=== PATIENT | male | born 1960 | race African-American/Black ===

== ENCOUNTER → 2017-04-01 | Outpatient (CLI) | payer BC ==
[~2017-04-01] MED LIST: ASPIRIN 32325 MG/TAB PO; ASPIRIN 81M81 MG/TA2 PO; ASPIRIN E.C. 8181 MG PO; ATIVAN 1MG T1 MG/TAB PO; CEFTIN500 MG PO; CIPRO 500MG TA500 MG PO; CLEOCIN HCL300 MG PO; COLACE 100100 MG/CAP PO; FLOMAX 0.40.4 MG/CAP PO; GLUCOPHAGE500 MG PO; INSULIN HUMA100 U/ML SQ; LANTUS100 U/ML SC; LANTUS100 U/ML SQ; LEVAQUIN 5500 MG/TA1 PO; LIPITOR 40MG TA40 MG PO; LOPRESSOR 225 MG/TAB PO; MACROBID 1100 MG/CAP PO; MACRODANTIN100 PO; MONODOX100 PO; MULTI VITAMINS1 TAB PO; MULTIPLE VITAMI1 CAP PO; NORCO 325 MG-51 TAB PO; NORCO 325 MG-7.1 TAB PO; NORVASC2.5 MG PO; NOVOLOG 100U100 U/M1 SQ; PYRIDIUM200 M1 PO; ULTRAM 50MG TAB50 MG PO; ZESTRIL 10MG10 MG PO; ZESTRIL 5MG5 MG PO
== END ==
LOC: SUN.DIA 08:52
DX: E11.40 Type 2 diabetes mellitus with diabetic neuropathy, unspecified (principal); Z79.4 Long term (current) use of insulin; E78.5 Hyperlipidemia, unspecified; I10 Essential (primary) hypertension; E66.9 Obesity, unspecified; Z68.34 Body mass index [BMI] 34.0-34.9, adult; Z71.3 Dietary counseling and surveillance; Z87.891 Personal history of nicotine dependence
CPT/HCPCS: G0108

== ENCOUNTER → 2017-04-08 | Outpatient (CLI) | payer BC | LOC: SUN.DIA 08:39 | DX: E11.40 Type 2 diabetes mellitus with diabetic neuropathy, unspecified (principal); Z79.4 Long term (current) use of insulin; E78.5 Hyperlipidemia, unspecified; I10 Essential (primary) hypertension; E66.9 Obesity, unspecified; Z68.34 Body mass index [BMI] 34.0-34.9, adult; Z71.3 Dietary counseling and surveillance; Z87.891 Personal history of nicotine dependence | CPT/HCPCS: G0108 ==

== ENCOUNTER → 2017-04-22 | Outpatient (CLI) | payer BC | LOC: SUN.DIA 08:46 | DX: E11.40 Type 2 diabetes mellitus with diabetic neuropathy, unspecified (principal); Z79.4 Long term (current) use of insulin; E78.5 Hyperlipidemia, unspecified; I10 Essential (primary) hypertension; E66.9 Obesity, unspecified; Z68.34 Body mass index [BMI] 34.0-34.9, adult; Z71.3 Dietary counseling and surveillance; Z87.891 Personal history of nicotine dependence | CPT/HCPCS: G0108 ==

== ENCOUNTER → 2017-05-19 | Outpatient (CLI) | payer BC | LOC: SUN.DIA 05-13 10:40 | DX: E11.40 Type 2 diabetes mellitus with diabetic neuropathy, unspecified (principal); Z79.4 Long term (current) use of insulin; E78.5 Hyperlipidemia, unspecified; I10 Essential (primary) hypertension; E66.9 Obesity, unspecified; Z68.34 Body mass index [BMI] 34.0-34.9, adult; Z71.3 Dietary counseling and surveillance; Z87.891 Personal history of nicotine dependence | CPT/HCPCS: G0108 ==

== ENCOUNTER → 2017-06-16 | Outpatient (CLI) | payer BC | LOC: SUN.DIA 14:11 | DX: E11.40 Type 2 diabetes mellitus with diabetic neuropathy, unspecified (principal); Z79.4 Long term (current) use of insulin; E78.5 Hyperlipidemia, unspecified; I10 Essential (primary) hypertension; E66.9 Obesity, unspecified; Z71.3 Dietary counseling and surveillance; Z87.891 Personal history of nicotine dependence | CPT/HCPCS: G0108 ==

== ENCOUNTER → 2017-08-17 | Outpatient (CLI) | payer BC | LOC: SUN.DIA 16:01 | DX: E11.40 Type 2 diabetes mellitus with diabetic neuropathy, unspecified (principal); Z79.4 Long term (current) use of insulin; E78.5 Hyperlipidemia, unspecified; I10 Essential (primary) hypertension; E66.9 Obesity, unspecified; Z71.3 Dietary counseling and surveillance; Z87.891 Personal history of nicotine dependence | CPT/HCPCS: G0108 ==

== ENCOUNTER → 2017-10-19 | Outpatient (CLI) | payer BC | LOC: SUN.DIA 16:06 | DX: E11.40 Type 2 diabetes mellitus with diabetic neuropathy, unspecified (principal); Z79.4 Long term (current) use of insulin; E78.5 Hyperlipidemia, unspecified; E66.9 Obesity, unspecified; F17.210 Nicotine dependence, cigarettes, uncomplicated ==

== ENCOUNTER → 2017-11-02 | Outpatient (CLI) | payer BC | LOC: SUN.DIA 16:01 | DX: E11.40 Type 2 diabetes mellitus with diabetic neuropathy, unspecified (principal); Z79.4 Long term (current) use of insulin; E78.5 Hyperlipidemia, unspecified; E66.9 Obesity, unspecified; F17.210 Nicotine dependence, cigarettes, uncomplicated | CPT/HCPCS: G0108 ==

== ENCOUNTER → 2018-06-29 | Outpatient (CLI) | payer BC | LOC: COL.RAD 10:30 | DX: E27.8 Other specified disorders of adrenal gland (principal) ==

== ENCOUNTER 2018-07-11 16:17 | Emergency (ER) | payer BC ==
[~2018-07-11] VITALS: Ht 157.5 cm; Wt 118.2 kg
[2018-07-11 16:24] VITALS: TEMP 98
[2018-07-11 17:04] LABS: BASO # 0.1 (0.0-0.2); EOS # 0.3 (0.0-0.7); EOS % 4.5 % (0-4.0); GRAN # 4.4 (1.4-6.5); GRAN % 61.8 % (42.2-75.2); HEMATOCRIT 41.8 % (42.0-52.0); HEMOGLOBIN 14.2 g/dl (13.5-18.0); LYMPH # 1.9 (1.2-3.4); LYMPH % 26.3 % (20.0-51.0); MEAN CELL VOLUME 92 fl (80.0-100.0); MEAN CORPUSCULAR HEMOGLOBIN 31 pg (27.0-31.0); MEAN CORPUSCULAR HGB CONC 34 g/dl (33.0-37.0); MEAN PLATELET VOLUME 9.6 fl (7.4-10.4); MONO # 0.4 (0.1-0.6); MONO % 6.1 % (1.7-9.3); PLATELET COUNT 217 K/mm3 (130-400); RED BLOOD COUNT 4.56 M/mm3 (4.20-5.60); REDCELL DISTRIBUTION WIDTH-CV 14.1 % (11.5-14.5)
[2018-07-11 17:12] LABS: CALCIUM 9.1 mg/dL (8.4-10.2); CREATININE, serum 2.7 (0.66-1.25); POTASSIUM 4.5 mmol/L (3.4-5.0)
[2018-07-11 19:24] VITALS: BP 150/105; PULSE 94
== END 2018-07-11 19:24 | disposition home or self-care (01) ==
LOC: COL.ER 16:17
PROVIDERS: Emergency Medicine
DX: E16.2 Hypoglycemia, unspecified (principal); Z79.82 Long term (current) use of aspirin; Z79.4 Long term (current) use of insulin
CPT/HCPCS: J7030

== ENCOUNTER 2018-07-27 16:28 | Emergency (ER) | payer OTHER ==
[~2018-07-27] VITALS: Ht 188 cm; Wt 120.5 kg
[2018-07-27 16:30] VITALS: TEMP 97.7
[2018-07-27] MEDS ORDERED: ZOFRAN ODT8 MG PO (16:42)
[2018-07-27 17:52] LABS: BASO # 0.1 (0.0-0.2); BASO % 0.9 % (0.0-2.0); EOS # 0.4 (0.0-0.7); GRAN # 5.8 (1.4-6.5); GRAN % 61.8 % (42.2-75.2); HEMATOCRIT 43.9 % (42.0-52.0); HEMOGLOBIN 14.8 g/dl (13.5-18.0); LYMPH # 2.5 (1.2-3.4); MEAN CELL VOLUME 92 fl (80.0-100.0); MEAN CORPUSCULAR HEMOGLOBIN 31 pg (27.0-31.0); MEAN CORPUSCULAR HGB CONC 34 g/dl (33.0-37.0); MEAN PLATELET VOLUME 9.4 fl (7.4-10.4); MONO # 0.5 (0.1-0.6); MONO % 5.4 % (1.7-9.3); PLATELET COUNT 227 K/mm3 (130-400); REDCELL DISTRIBUTION WIDTH-CV 14.1 % (11.5-14.5)
[2018-07-27 18:01] LABS: ALBUMIN 4.2 gm/dL (3.5-5.0); BILIRUBIN,TOTAL 0.4 mg/dL (0.0-1.0); CALCIUM 9.3 mg/dL (8.4-10.2); CREATININE, serum 2.79 (0.66-1.25); POTASSIUM 4.8 mmol/L (3.4-5.0); TOTAL PROTEIN 7.7 gm/dL (6.4-8.2)
[2018-07-27 18:34] VITALS: BP 150/108; PULSE 89
== END 2018-07-27 18:33 | disposition home or self-care (01) ==
LOC: COL.ER 16:28
PROVIDERS: Emergency Medicine
DX: S06.0X0A Concussion without loss of consciousness, initial encounter (principal); E11.9 Type 2 diabetes mellitus without complications; I10 Essential (primary) hypertension; W11.XXXA Fall on and from ladder, initial encounter; Y92.59 Other trade areas as the place of occurrence of the external cause; Z79.4 Long term (current) use of insulin

== ENCOUNTER 2018-08-05 18:29 | Emergency (ER) | payer BC ==
[~2018-08-05] VITALS: Ht 185.4 cm; Wt 115.9 kg
[~2018-08-05 18:29] MED LIST changes: +ZOFRAN ODT8 MG PO
[2018-08-05 18:34] VITALS: TEMP 98.3
[2018-08-05 19:04] LABS: BASO # 0.1 (0.0-0.2); BASO % 0.7 % (0.0-2.0); EOS % 0.4 % (0-4.0); GRAN # 9.5 (1.4-6.5); GRAN % 82.8 % (42.2-75.2); HEMATOCRIT 44.7 % (42.0-52.0); HEMOGLOBIN 15.3 g/dl (13.5-18.0); LYMPH # 1.4 (1.2-3.4); LYMPH % 12.2 % (20.0-51.0); MEAN CELL VOLUME 89 fl (80.0-100.0); MEAN CORPUSCULAR HEMOGLOBIN 31 pg (27.0-31.0); MEAN CORPUSCULAR HGB CONC 34 g/dl (33.0-37.0); MEAN PLATELET VOLUME 10.2 fl (7.4-10.4); MONO # 0.4 (0.1-0.6); MONO % 3.5 % (1.7-9.3); PLATELET COUNT 303 K/mm3 (130-400); RED BLOOD COUNT 5.01 M/mm3 (4.20-5.60)
[2018-08-05 19:15] LABS: ALANINE AMINOTRANSFERASE 14 U/L (21-72); ALBUMIN 4.3 gm/dL (3.5-5.0); ALKALINE PHOSPHATASE 181 U/L (50-136); ANION GAP 16 mmol/L (7-16); AST,SGOT 22 U/L (15-37); BILIRUBIN,TOTAL 0.7 mg/dL (0.0-1.0); BLOOD UREA NITROGEN 66 mg/dL (9-20); CARBON DIOXIDE 25 mmol/L (22-30); CHLORIDE 96 mmol/L (98-107); CREATININE, serum 3.41 (0.66-1.25); SODIUM 137 mmol/L (137-145)
[2018-08-05 19:26] LABS: TROPONIN-I 0.033 ng/mL (0.000-0.035)
[2018-08-05 19:28] LABS: GLUCOSE 621 mg/dL (74-106)
[2018-08-05 19:29] LABS: ACETONE,SERUM SMALL; POTASSIUM 5.9 mmol/L (3.4-5.0)
[2018-08-05 20:12] LABS: ARTERIAL BLOOD GAS PCO2 37.7 mmHg (35-45); ARTERIAL BLOOD GAS pH 7.45 (7.35-7.45)
[2018-08-05 20:14] LABS: ARTERIAL BLOOD GAS BASE EXCESS 1.9 (-2-2); ARTERIAL BLOOD GAS HCO3 25.7 meq/L (22-26); ARTERIAL BLOOD GAS PO2 38.3 mmHg (80-100)
[2018-08-05 21:08] LABS: COLLECTION METHOD CLEAN CATCH
[2018-08-05 21:28] LABS: PH 7 (5-8); SQUAMOUS EPITHELIAL None Seen /hpf; URINE APPEARANCE Clear; URINE BACTERIA None Seen /hpf; URINE BILIRUBIN Negative (NEGATIVE); URINE BLOOD 1+ (NEGATIVE); URINE COLOR Yellow; URINE GLUCOSE 3+ (NEGATIVE); URINE KETONE Negative (NEGATIVE); URINE LEUKOCYTE ESTERASE 2+ (NEGATIVE); URINE NITRATE Negative (NEGATIVE); URINE PROTEIN(semi-quant) 2+ (NEGATIVE); URINE UROBILINOGEN Negative (NEGATIVE)
[2018-08-05 23:21] VITALS: BP 120/85; PULSE 94
== END 2018-08-05 23:21 | disposition short-term general hospital (02) ==
LOC: COL.ER 18:29
PROVIDERS: Emergency Medicine
DX: E11.65 Type 2 diabetes mellitus with hyperglycemia (principal); E11.22 Type 2 diabetes mellitus with diabetic chronic kidney disease; I12.9 Hypertensive chronic kidney disease with stage 1 through stage 4 chronic kidney disease, or unspecified chronic kidney disease; N17.9 Acute kidney failure, unspecified; N39.0 Urinary tract infection, site not specified; E87.5 Hyperkalemia; Z79.4 Long term (current) use of insulin; Z79.82 Long term (current) use of aspirin
CPT/HCPCS: J0696; J1815; J2060; J2405; J7030

== ENCOUNTER 2018-08-08 13:32 | Outpatient (RCR) | payer OTHER | END 2018-09-05 10:23 | disposition still patient (30) | LOC: WSOH 13:32 | DX: S06.0X1A Concussion with loss of consciousness of 30 minutes or less, initial encounter (principal); S00.80XA Unspecified superficial injury of other part of head, initial encounter; W11.XXXA Fall on and from ladder, initial encounter; Y92.89 Other specified places as the place of occurrence of the external cause; Y99.0 Civilian activity done for income or pay ==

== ENCOUNTER → 2023-03-26 | Outpatient (CLI) | payer BC ==
[~2023-03-26] MED LIST changes: +NORVASC 5MG5 MG/TAB PO; +NOVLOG; +TAMIFLU30 MG PO; +TRESIBA FL100 UNIT/1 SQ; +ZOFRAN ODT4 MG PO
== END ==
LOC: COL.RAD 10:30
DX: E21.3 Hyperparathyroidism, unspecified (principal)
CPT/HCPCS: A9500-JZ

== ENCOUNTER 2023-04-07 08:23 | Day surgery (SDC) | payer BC ==
[2023-04-07] VITALS (8 sets, daily range): BP systolic 102–155; BP diastolic 59–99; PULSE 72–82; TEMP 98–98.9
[~2023-04-07] VITALS: Ht 185.4 cm; Wt 107.0 kg
--- NOTE | 2023-04-07 10:07 | NUR ---
ACCUCHECK ON RE CHECK 80 AND REPORTED TO JASPREET Marks CRNA. NO FURTHER ORDERS.
[2023-04-07] MEDS ORDERED: TYLENOL 325MG325 MG PO (10:16)
[2023-04-07] MEDS ORDERED: NORVASC 5MG5 MG/TAB PO (10:17)
[2023-04-07] MEDS ORDERED: LASIX 20MG TABL20 MG PO (10:25)
[2023-04-07] MEDS ORDERED: ZESTRIL 5MG5 MG PO (10:26)
[2023-04-07] MEDS ORDERED: CALCITRIOL PO (10:27)
[2023-04-07] MEDS ORDERED: DAILY MULTIPLE1 T18 PO (10:29)
[2023-04-07] MEDS ORDERED: ZYLOPRIM 300MG300 MG PO (10:31)
[2023-04-07] MEDS ORDERED: LEVAQUIN 750MG750 M1 PO (10:33)
[2023-04-07 10:37] LABS: CALCIUM 8.9 mg/dL (8.4-10.2); CREATININE, serum 6.34 mg/dL (0.72-1.25)
--- NOTE | 2023-04-07 20:23 | NUR ---
[id number]: PT TO RECOVERY BAY 6 FROM PACU S/P [employer] CATH PLACEMENT A&O, PLACED ON MONITOR, VSS ON RA RECEIVED REPORT AND ASSUMED CARE OF PT FROM RN PAMELLA SISTER AT BEDSIDE DRSGS (GLUE X 3 TROCAR SITES; DRAIN SPOUNGE, 4X4, TEGADERM AT DRAIN) CDI PT HAS BEEN HYPOGLYCEMIC PRE AND POST-OP. HAS HAD PO AND IV GLUCOSE, GLUSOSE UPON ARRIVAL TO MAC 63 - PT TOLERATING PO ALREADY, PROVIDED 8OZ OF JUICE, MUFFIN, CHEESE, CRACKERS - TOLERATED ALL AND RESPONDED WITH SUGARS IN 100'S, DENIES S/S THRU OUT SDC STAY. REPORTS MINIMAL ABD DISCOMFORT, ED ON WOUND AND DRSG CARE, ABD SPLINTING - DECLINES INTERVENTION THRU OUT SDC STAY. PT HAS REMAINED A&O, NAD, VSS ON RA, TOLERATING PO, IS WITHOUT SIGNIFICANT COMPLAINT, WITH STEADY GAIT WITH CHARCOT SHOE THRU OUT STAY IV D/C'D. D/C INSTRUCTIONS, FOLLOW UP REVIEWED AND HANDED TO PT. ALL QUESTIONS AND CONCERNS ADDRESSED TO PT SATISFACTION. TAKEN TO EXIT VIA W/C WITH ALL BELONGINGS AND PAPERWORK IN HAND, ASSISTED INTO PASSENGER SEAT OF [facility]. BROTHER TO DRIVE HOME.
== END 2023-04-07 15:20 | disposition home or self-care (01) ==
LOC: SDCO 08:23
PROVIDERS: Surgery
DX: I12.0 Hypertensive chronic kidney disease with stage 5 chronic kidney disease or end stage renal disease (principal); N18.5 Chronic kidney disease, stage 5; E11.22 Type 2 diabetes mellitus with diabetic chronic kidney disease; E66.9 Obesity, unspecified; Z68.32 Body mass index [BMI] 32.0-32.9, adult; Z87.891 Personal history of nicotine dependence; Z79.4 Long term (current) use of insulin
CPT/HCPCS: C1750; J0665; J0690; J2405; J2704; J3010; J7030

== ENCOUNTER 2023-04-27 08:00 | Inpatient (IN) | payer BC ==
[~2023-04-27] VITALS: Ht 185.4 cm; Wt 106.9 kg
[2023-04-27] VITALS (9 sets, daily range): BP systolic 119–149; BP diastolic 65–73; PULSE 68–92; TEMP 98.3–98.6
[~2023-04-27 08:00] MED LIST changes: +CALCITRIOL PO; +DAILY MULTIPLE1 T18 PO; +LASIX 20MG TABL20 MG PO; +LEVAQUIN 750MG750 M1 PO; +TYLENOL 325MG325 MG PO; +ZYLOPRIM 300MG300 MG PO
[2023-04-27 08:41] LABS: BASO % 0.4 % (0.0-2.0); EOS # 0.1 K/mm3 (0.0-0.7); EOS % 1.3 % (0.0-4.0); GRAN # 8.1 K/mm3 (1.4-6.5); GRAN % 81.8 % (42.2-75.2); LYMPH # 0.9 K/mm3 (1.2-3.4); LYMPH % 9.5 % (20.0-51.0); MEAN CELL VOLUME 84 fl (80.0-100.0); MEAN CORPUSCULAR HGB CONC 31 g/dl (33.0-37.0); MONO # 0.6 K/mm3 (0.1-0.6); MONO % 6.5 % (1.7-9.3); PLATELET COUNT 384 K/mm3 (130-400); RED BLOOD COUNT 3.31 M/mm3 (4.20-5.60); REDCELL DISTRIBUTION WIDTH-CV 17.4 % (11.5-14.5)
[2023-04-27 08:44] LABS: HEMATOCRIT 27.7 % (42.0-52.0); HEMOGLOBIN 8.6 g/dl (13.5-18.0); MEAN CORPUSCULAR HEMOGLOBIN 26 pg (27-31)
[2023-04-27 08:58] LABS: ALBUMIN 2.8 gm/dL (3.4-4.8); BILIRUBIN,TOTAL 0.2 mg/dL (0.2-1.2); CALCIUM 9.6 mg/dL (8.4-10.2); CREATININE, serum 5.8 mg/dL (0.72-1.25); POTASSIUM 4.3 mmol/L (3.5-4.5); TOTAL PROTEIN 7.8 gm/dL (6.2-8.1)
[2023-04-27] MEDS ORDERED: fentaNYL 50 MCG/ML 2 ML VIAL IV ONE (09:00)
[2023-04-27] MEDS ORDERED: Morphine 4 MG/ML VIAL IV ONE (10:15)
[2023-04-27] MEDS ORDERED: PRINIVIL5 MG PO (10:33)
[2023-04-27] MEDS ORDERED: INSULIN AS100 UNIT/2 SQ (10:35)
[2023-04-27] MEDS ORDERED: TRESIBA FL100 UNIT/1 SQ (10:36)
[2023-04-27] MEDS ORDERED: LASIX 40MG TABL40 MG PO (10:39)
[2023-04-27] MEDS ORDERED: CIPRO 500MG TA500 MG PO (12:25)
[2023-04-27] MEDS ORDERED: PERCOCET 325 MG1 TA2 PO (12:25)
[2023-04-27] MEDS ORDERED: Polyethylene Glycol 3350 17 GM PDS PO PRN (13:30)
[2023-04-27] MEDS ORDERED: Acetaminophen 325 MG TAB PO PRN (13:30)
[2023-04-27] MEDS ORDERED: Ondansetron 4 MG/2 ML VIAL IV PRN ×3 (13:30→21:45)
[2023-04-27] MEDS ORDERED: Dextrose 50% Water 25 GM/50 ML SYRINGE IV ONE (13:30)
[2023-04-27] MEDS ORDERED: Docusate Sodium 100 MG CAP PO PRN (13:30)
[2023-04-27] MEDS ORDERED: D5 1/2 NS & 20 mEq KCl 1,000 ML IV ONE (13:30)
[2023-04-27] MEDS ORDERED: HYDROmorphone 0.5 MG/0.5 ML SYRINGE IV ONE (13:45)
[2023-04-27] MEDS ORDERED: *Vancomycin Dosing Protocol IV SCH (14:00)
[2023-04-27] MEDS ORDERED: Vancomycin 2 GM,Special Dose/Pharmacy Prepared 2 GM in NS 500 ML IV SCH (14:30)
[2023-04-27] MEDS ORDERED: D5 1/2 NS 1,000 ML IV SCH (15:30)
[2023-04-27] MEDS ORDERED: Heparin 5,000 UNITS/ML 1 ML VIAL SQ SCH (16:00)
[2023-04-27] MEDS ORDERED: Insulin Aspart (NovoLOG) SQ SCH (17:00)
[2023-04-27] MEDS ORDERED: Heparin 1,000 UNITS/ML 10 ML Multi-Dose VIAL IV SCH (18:15)
[2023-04-27] MEDS ORDERED: Heparin 1,000 UNITS/ML 10 ML Multi-Dose VIAL ICA SCH (18:15)
[2023-04-27] MEDS ORDERED: Ondansetron 4 MG/2 ML VIAL ONE (18:29)
[2023-04-27] MEDS ORDERED: dexAMETHasone 10 MG/ML VIAL ONE (18:29)
[2023-04-27] MEDS ORDERED: fentaNYL 50 MCG/ML 2 ML VIAL ONE (18:29)
[2023-04-27] MEDS ORDERED: Lidocaine PF 2% (20 MG/ML) 5 ML VIAL ONE (18:29)
[2023-04-27] MEDS ORDERED: Ketorolac 30 MG/ML VIAL ONE (18:29)
[2023-04-27] MEDS ORDERED: fentaNYL 50 MCG/ML 2 ML VIAL IV PRN (18:30)
[2023-04-27] MEDS ORDERED: HYDROmorphone 2 MG/1 ML VIAL IV PRN (18:30)
[2023-04-27] MEDS ORDERED: hydrALAZINE 20 MG/ML 1 ML VIAL IV PRN (18:30)
[2023-04-27] MEDS ORDERED: droPERidol 2.5 MG/ML 2 ML VIAL IV PRN (18:30)
[2023-04-27] MEDS ORDERED: Metoprolol Tartrate 50 MG TAB PO SCH (21:00)
[2023-04-27] MEDS ORDERED: Atorvastatin 40 MG TAB PO SCH (21:00)
[2023-04-27] MEDS ORDERED: amLODIPine 5 MG TAB PO SCH (21:00)
[2023-04-27] MEDS ORDERED: Lisinopril 5 MG TAB PO SCH (21:00)
[2023-04-27] MEDS ORDERED: Naloxone 0.4 MG/ML VIAL IV PRN (21:45)
--- NOTE | 2023-04-27 22:47 | NUR ---
Patient arrived to surgical unit from PACU at approximately 2200. Denies having pain and discomfort. Tolerated clear liquids, given pudding as requested, tolerated well, given sandwich as requested. Peripheral IV to right AC. IV fluids continue and started IV ABX per orders. Denies SOB and dyspnea. LS CTA. HRR. BSAx4. 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 Immobilizer in place. Elevated on pillow and ice to site. Voices no questions, needs, or concerns at this time. In bed with call light within reach. Bed alarm on. Patient trying to remain positive, but did make the comment that he is not ready to look at amputation site at this time.
[2023-04-28] VITALS (13 sets, daily range): BP systolic 113–147; BP diastolic 64–85; PULSE 66–80; TEMP 98–98.4
[2023-04-28 04:11] LABS: COLLECTION METHOD CLEAN CATCH
[2023-04-28 04:19] LABS: PH 6.5 (5.0-8.5); URINE APPEARANCE CLEAR (CLEAR/HAZY); URINE BLOOD 1+ (NEGATIVE); URINE COLOR YELLOW (YELLOW); URINE GLUCOSE 2+ (NEGATIVE); URINE KETONE NEGATIVE (NEGATIVE); URINE NITRATE NEGATIVE (NEGATIVE); URINE PROTEIN(semi-quant) 2+ (NEGATIVE); URINE UROBILINOGEN 0.2 E.U/dL (0.2-1.0)
--- NOTE | 2023-04-28 05:35 | NUR ---
Patient received PRN [place] once this shift as requested for pain. Did not have any adverse reactions noted or reported. Right leg elevated on pillows, ice to site. Dressing/immobilizer in place. Voices no questions, needs, or concerns at this time. In bed with call light within reach. Bed alarm on. Continues on IV ABX per orders.
[2023-04-28 06:49] LABS: BASO % 0.1 % (0.0-2.0); GRAN # 6.9 K/mm3 (1.4-6.5); GRAN % 89.6 % (42.2-75.2); LYMPH # 0.6 K/mm3 (1.2-3.4); MEAN CELL VOLUME 83 fl (80.0-100.0); MEAN CORPUSCULAR HGB CONC 31 g/dl (33.0-37.0); MEAN PLATELET VOLUME 9.3 fl (7.4-10.4); MONO # 0.1 K/mm3 (0.1-0.6); MONO % 1.8 % (1.7-9.3); PLATELET COUNT 332 K/mm3 (130-400); REDCELL DISTRIBUTION WIDTH-CV 17.3 % (11.5-14.5)
[2023-04-28 06:57] LABS: HEMATOCRIT 24.9 % (42.0-52.0); HEMOGLOBIN 7.8 g/dl (13.5-18.0); MEAN CORPUSCULAR HEMOGLOBIN 26 pg (27-31)
[2023-04-28 07:09] LABS: CALCIUM 8.7 mg/dL (8.4-10.2); CREATININE, serum 6.15 mg/dL (0.72-1.25); MAGNESIUM 1.4 mg/dL (1.6-2.6); POTASSIUM 5.7 mmol/L (3.5-4.5)
--- NOTE | 2023-04-28 08:00 | NUR ---
Pt resting in bed with pain 5/10 in right BKA, pain medication provided per emar. Dressing on right BKA clean and dry, ice applied. Peritoneal catheter hep locked and dressing clean and dry. Family at bedside. Will continue to montior.
[2023-04-28] MEDS ORDERED: Lisinopril 10 MG TAB PO SCH (09:00)
[2023-04-28] MEDS ORDERED: Calcitriol 0.25 MCG CAP PO SCH (09:00)
[2023-04-28] MEDS ORDERED: Furosemide 40 MG TAB PO SCH (09:00)
[2023-04-28] MEDS ORDERED: Multivitamin TAB PO SCH (09:00)
[2023-04-28] MEDS ORDERED: Allopurinol 300 MG TAB PO SCH (09:00)
[2023-04-28] MEDS ORDERED: Heparin 5,000 UNITS/ML 1 ML VIAL SQ SCH (09:00)
--- NOTE | 2023-04-28 09:52 | NUR ---
SEE MERGE FOR PROCEDURE DOCUMENTATION
[2023-04-28] MEDS ORDERED: Midazolam 2 MG/2 ML VIAL IV SCH (10:40)
--- NOTE | 2023-04-28 13:06 | NUR ---
Initial visit; Patient using the telephone but his sister; Shreya thanked for stopping and being so kind. will keep Asael in her prayers along with his sister; Shreya who said she was pleased to meet Coating Mixer and will call her if Asael decides he would like prayer.
--- NOTE | 2023-04-28 13:14 | NUR ---
DR. KEVIN PROVIDED VERBAL ORDERS TO CONSULT DR. [facility] FOR PT FOLLOWS THIS PROVIDER OUTPT.
[2023-04-28] MEDS ORDERED: Dextrose 50% Water 25 GM/50 ML SYRINGE IV PRN (14:00)
[2023-04-28] MEDS ORDERED: Dextrose (Glucose) 15 GM (4 x 3.75 GM) Chewable TABLET PACK PO PRN (14:00)
[2023-04-28] MEDS ORDERED: Glucagon 1 MG VIAL IM PRN (14:00)
--- NOTE | 2023-04-28 14:13 | NUR ---
nursing home social worker recieved a consult regarding IPR referral/review for pt. VAZQUEZ discussed with Dr. Velazquez who was agreeable to this once stable and reviewed by Infectious Disease. SW was informed pt will need dialysis upon discharge. SW spoke with IPR Director Ashley and informed her of the potential referral for review. SW spoke with patient and his friend, Dorene [phone] while he was in dialysis per KRISTIN Bernard'buzz peck. Patient reports he lives alone in [place]. He has his friend listed and his sister on the contact list. He sees Dr. Kimbrough and obtains medications from [facility] with no difficulties. He had questions regarding affordability. SW provided verbal information on [facility]. Pt reports most of his medication are around $9, but his insulin is expensive until he meets his deductible. Pt reports he is independent with ADLS and uses crutches and a boot for DME. He does not have a DPOA-HC and accepted a copy to look over. SW asked if he was or had children to assess NOK. Pt reports he is not , but has children. He reports that his sister is his decision-maker, but is fine when SW informed him legally it is his children. He will review this. SW notes PT/OT evaluated pt and reccomending IPR vs Snf vs HH. Pt declined SNF as he does not want to go in a shelter. Pt was provided information on IPR as they have dialysis and could assist if he needs IV ABOX. SW provided information on what home with HH would look like in that regard. Pt reports he is established with [facility] and reports that ESRD automatically qualifies pt for Medicaid approval. He states they started it, but was unsure of the status. SW said she can have the financial advisors follow up. Pt was agreeable to this. Pt reports concerns regarding if PT reccomends a FWW and he is not agreeable to this. He reports he cannot 'hop' with a walker on one foot. SW advised he discuss this further with the therapy team as he uses crutches at home. SW informed financial sales manager Gisell to check on the status of Medicaid application. She will inform Charogaurang to complete a FAHAD. Discharge Plan: tbd
--- NOTE | 2023-04-28 16:04 | NUR ---
food preparation worker emailed Joanie at [facility] to follow up on potential insurance they completed. VAZQUEZ was informed a Medicaid application was not completed, only discussed. She reports pt gets SSDI and they sent in his Medicare application to social security stating that he has ESRD. VAZQUEZ informed hospital financial advisors via email.
--- NOTE | 2023-04-28 17:05 | NUR ---
Dialysis Note Pt6 arrived to tx via bed uf goal set for 2kg and 2 kg removed. Pt tolerated tx well, Pt dcd back to room without complaints
--- NOTE | 2023-04-28 20:20 | NUR ---
PT A&O X3 LAYING IN BED. VSS ON ROOM AIR. RIGHT BKA DRESSING CDI WITH BRACE IN PLACE & ELEVATED ON PILLOW WITH ICE PACK ON. PT DENYING ANY PAIN AT THIS TIME. LEFT FOOT DRESSING IN PLACE FROM WOUND CARE TODAY & ELEVATED ON PILLOW. IV ABX INFUSING TO RIGHT AC VIA PUMP. PT BLOOD SUGAR 429, HOSPITALIST ANURAG NOTIFIED & NEW ORDER FOR 10U IV INSULIN REGULAR ALONG WITH PTS 55U LEVEMIR & WILL WAIT ON PTS SS INSULIN, GIVEN PER MAY. & TO RECHECK BLOOD SUGAR IN AN HOUR.
[2023-04-28] MEDS ORDERED: Insulin Regular Human (NovoLIN R/HumuLIN R) IV ONE ×2 (20:30→21:45)
[2023-04-28] MEDS ORDERED: Insulin Aspart (NovoLOG) SQ SCH (21:00)
[2023-04-28] MEDS ORDERED: Sennosides/Docusate 8.6-50 MG TAB PO SCH (21:00)
[2023-04-28 21:07] LABS: CALCIUM 8.6 mg/dL (8.4-10.2); CREATININE, serum 4.34 mg/dL (0.72-1.25); POTASSIUM 4.6 mmol/L (3.5-4.5)
--- NOTE | 2023-04-28 21:35 | NUR ---
HOSPITALIST ANURAG NOTIFIED OF CRITICAL LAB GLUCOSE WAS 505 & RECHECK BLOOD SUGAR WAS 452. NEW ORDER FOR 10U IV INSULIN REGULAR & TO RECHECK BLOOD SUGAR IN AN HOUR.
--- NOTE | 2023-04-28 22:50 | NUR ---
HOSPITALIST ANURAG NOTIFIED PT BLOOD SUGAR NOW 337. ORDER TO NOW GIVE SS INSULIN, GIVEN PER MAY.
[2023-04-29] VITALS (12 sets, daily range): BP systolic 109–152; BP diastolic 66–85; PULSE 61–76; TEMP 97.5–98.3
--- NOTE | 2023-04-29 00:55 | NUR ---
PT RESTING IN BED WITH UNLABORED RESP. NO C/O PAIN. CALL LIGHT IN REACH & FALL PRECAUTIONS IN PLACE
--- NOTE | 2023-04-29 06:20 | NUR ---
PT RESTING IN BED WITH UNLABORED RESP. NO C/O PAIN THIS MORNING. 0430 BLOOD SUGAR 211, GAVE NONSCHEDULED SS INSULIN AFTER HOSPITALIST ANURAG GAVE VERBAL ORDER TO. PT DENYING FURTHER NEEDS. CALL LIGHT IN REACH
[2023-04-29 06:50] LABS: BASO % 0.3 % (0.0-2.0); EOS # 0.2 K/mm3 (0.0-0.7); EOS % 1.7 % (0.0-4.0); LYMPH # 2.4 K/mm3 (1.2-3.4); LYMPH % 23.3 % (20.0-51.0); MEAN CELL VOLUME 83 fl (80.0-100.0); MEAN CORPUSCULAR HGB CONC 32 g/dl (33.0-37.0); MEAN PLATELET VOLUME 9.8 fl (7.4-10.4); MONO # 0.6 K/mm3 (0.1-0.6); MONO % 6.2 % (1.7-9.3); PLATELET COUNT 343 K/mm3 (130-400); RED BLOOD COUNT 2.67 M/mm3 (4.20-5.60); REDCELL DISTRIBUTION WIDTH-CV 17.1 % (11.5-14.5)
[2023-04-29 06:56] LABS: HEMATOCRIT 22.1 % (42.0-52.0); MEAN CORPUSCULAR HEMOGLOBIN 26 pg (27-31)
[2023-04-29 07:27] LABS: C-REACTIVE PROTEIN 7.36 mg/dL (0.00-0.50); CALCIUM 8.8 mg/dL (8.4-10.2); CREATININE, serum 4.77 mg/dL (0.72-1.25); MAGNESIUM 1.6 mg/dL (1.6-2.6); POTASSIUM 4.5 mmol/L (3.5-4.5)
--- NOTE | 2023-04-29 09:07 | NUR ---
PT RESTING IN BED EATING BREAKFAST. PAIN WELL CONTROLLED WITH PO MEDS AT THIS TIME. DRESSING TO RIGHT LE CDI. IV RUNNING TO [facility]. PT IS A/OX4, AWAITING ID RECCS FOR ABX. PT BEGINNING TO WORK WITH THERAPY THIS AM.
--- NOTE | 2023-04-29 09:36 | NUR ---
Vancomycin dosing note: 04/28/23 random morning level resulted at 17. Patient dialized in the afternoon. 04/29/23 will redose 1 gram today. Next HD planned for 04/30/23. ID consult will be today. Pharmacy will continue to follow.
--- NOTE | 2023-04-29 10:54 | NUR ---
VAZQUEZ recieved a call from pt whom wants to complete DPOA-HC. VAZQUEZ completed this with pt listing his daughters, Bairon and Beni who live in [place]. VAZQUEZ and VAZQUEZ Student Stephenie witnessed signature. Pt signed and was provided copies/originals. Copy placed in the chart. VAZQUEZ advised patient that Dr. Velazquez believes tomorrow pt could look into discharge. VAZQUEZ informed him that she will keep him updated if IPR accepts him. VAZQUEZ informed IPR Director Ashley of potential discharge for patient. Discharge Plan; tbd, IPR Review
--- NOTE | 2023-04-29 13:54 | NUR ---
dairy cattle farm worker faxed History and Physical per a request informed by VAZQUEZ Gillespie from VAZQUEZ Nair at [facility]. VAZQUEZ called junior financial analyst Joseph and followed up to see if she obtained a FAHAD with pt for checking on Medicaid. Joseph confirmed she had completed this. Discharge Plan: tbd
[2023-04-29] MEDS ORDERED: Heparin 1,000 UNITS/ML 10 ML Multi-Dose VIAL ICA SCH (17:00)
[2023-04-29] MEDS ORDERED: NS 1,000 ML IV SCH (17:00)
--- NOTE | 2023-04-29 19:19 | NUR ---
RECEIVED CHANGE OF SHIFT REPORT FORM DAY SHIFT NURSE. PATIENT UP IN CHAIR, NO NEEDS REPORTED AT TIME OF REPORT. CALL LIGHT IN REACH.
--- NOTE | 2023-04-29 19:56 | NUR ---
PT UP IN CHAIR DENIES NEEDS
--- NOTE | 2023-04-29 20:00 | NUR ---
PT HAS A PERITONEAL DIALYSIS CATH. GAUZE DRESSING COVERING IS CLEAN DRY AND INTACT.
[2023-04-30 01:00] VITALS: BP_SYST 114
[2023-04-30 03:30] VITALS: BP 114/67; PULSE 68; TEMP 97.9
[2023-04-30 05:00] VITALS: BP_SYST 114
--- NOTE | 2023-04-30 06:20 | NUR ---
PT IN HD. ZOSYN HELD UNTIL LAST HOUR OF HD. REFUSED BOWEL PREP THIS AM SINCE HE IS IN HD. PT HAD A BM LAST NIGHT. STABLE ON ROUNDS. NO SIGN OF DISTRESS AT THIS TIME.
[2023-04-30 06:45] LABS: BASO % 0.4 % (0.0-2.0); EOS # 0.4 K/mm3 (0.0-0.7); EOS % 5.2 % (0.0-4.0); GRAN # 4.9 K/mm3 (1.4-6.5); GRAN % 62.7 % (42.2-75.2); LYMPH % 25.3 % (20.0-51.0); MEAN CELL VOLUME 83 fl (80.0-100.0); MEAN CORPUSCULAR HGB CONC 32 g/dl (33.0-37.0); MEAN PLATELET VOLUME 9.9 fl (7.4-10.4); MONO # 0.5 K/mm3 (0.1-0.6); MONO % 6.1 % (1.7-9.3); PLATELET COUNT 344 K/mm3 (130-400); RED BLOOD COUNT 2.92 M/mm3 (4.20-5.60)
[2023-04-30 06:48] LABS: HEMATOCRIT 24.1 % (42.0-52.0); HEMOGLOBIN 7.7 g/dl (13.5-18.0); MEAN CORPUSCULAR HEMOGLOBIN 26 pg (27-31)
[2023-04-30 07:06] LABS: C-REACTIVE PROTEIN 4.74 mg/dL (0.00-0.50); CALCIUM 8.8 mg/dL (8.4-10.2); CREATININE, serum 5.33 mg/dL (0.72-1.25); MAGNESIUM 1.4 mg/dL (1.6-2.6); POTASSIUM 4.7 mmol/L (3.5-4.5)
[2023-04-30 08:23] VITALS: BP_SYST 114
--- NOTE | 2023-04-30 08:26 | NUR ---
PT IN DIALYSIS, A/O X4, REPORTING NO PAIN. BLOOD SUGAR 63 THIS MORNING, GLUCOSE TABLETS AND BREAKFAST PROVIDED, RECHECK BLOOD SUGAR OF 106. PERITONEAL DIALYSIS PORT CLEAN AND DRY. DRESSING TO LEFT FOOT PLACED BY WOUND CARE CLEAN AND DRY. PT REFUSED ICE TO [facility] AT THIS TIME. WILL CONTINUE TO MONITOR.
--- NOTE | 2023-04-30 09:42 | NUR ---
Dialysis Note Pt arrived to tx via bed. Uf goal set for 2.5 kg and 2.5 kg removed. Pt tolerated tx well and dcd back to room via bed without complaints
[2023-04-30 11:47] VITALS: BP 155/74; PULSE 81; TEMP 98.3
[2023-04-30 12:14] VITALS: BP_SYST 155
--- NOTE | 2023-04-30 14:02 | NUR ---
[facility] was notified by [facility]ANIL[facility] Ramirez Director that they got insurance authorization for patient and can accept today. Discharge Plan; IPR
[2023-04-30] MEDS ORDERED: AMOXICILLIN/CLA1 TA1 PO (14:59)
[2023-04-30] MEDS ORDERED: ASPI325T6 PO (15:00)
[2023-04-30] MEDS ORDERED: PROTONIX 40MG T40 MG PO (15:01)
[2023-04-30] MEDS ORDERED: NORCO 325 MG-51 TAB PO (15:02)
[2023-04-30] MEDS ORDERED: NOVOLOG FLEX100 U/ML SQ (15:02)
--- NOTE | 2023-04-30 15:16 | NUR ---
REPORT GIVEN TO HANANE FOSTER. PT AND BELONGINGS MOVED TO IPR.
[2023-04-30] MEDS ORDERED: Amoxicillin/Clavulanate K+ 500/125 MG TAB PO SCH (17:00)
[2023-05-03] MEDS ORDERED: GENTAMICIN TOPI15 GM TP (10:22)
[2023-05-03] MEDS ORDERED: PROTONIX 40MG T40 MG PO (12:30)
[2023-05-03] MEDS ORDERED: INSULIN AS100 UNIT/2 SQ (12:33)
[2023-05-07] MEDS ORDERED: AMOXICILLIN/CLA1 TA1 PO (09:15)
[2023-05-07] MEDS ORDERED: NEURONTIN100 MG/CAP PO (09:16)
[2023-05-07] MEDS ORDERED: ASPI325T6 PO (09:16)
== END 2023-04-30 15:15 | DRG 474 ==
LOC: COL.ER 08:00 → SURG 13:20
PROVIDERS: Family Medicine; Nurse Practitioner Family; Orthopaedic Surgery; ADMIT Hospitalist
PROC: 0Y6H0Z3 Detachment at Right Lower Leg, Low, Open Approach (ICD-10-PCS; principal; 2023-04-27 19:30)
DX: M00.9 Pyogenic arthritis, unspecified (principal); N18.6 End stage renal disease; I12.0 Hypertensive chronic kidney disease with stage 5 chronic kidney disease or end stage renal disease; I10 Essential (primary) hypertension; Z79.4 Long term (current) use of insulin; E11.649 Type 2 diabetes mellitus with hypoglycemia without coma; E78.5 Hyperlipidemia, unspecified; D63.1 Anemia in chronic kidney disease
CPT/HCPCS: J1100; J1170; J1644; J1815; J1885; J2250; J2270; J2405; J2543; J3010; J3370; J3480; J7030; J7040; J7050; L1830; L4386; Q3014

== ENCOUNTER 2023-09-02 11:15 | Outpatient (RCR) | payer BC ==
[~2023-09-02 11:15] MED LIST changes: +AMOXICILLIN/CLA1 TA1 PO; +ASPI325T6 PO; +GENTAMICIN TOPI15 GM TP; +INSULIN AS100 UNIT/2 SQ; +LASIX 40MG TABL40 MG PO; +NEURONTIN100 MG/CAP PO; +NOVOLOG FLEX100 U/ML SQ; +PERCOCET 325 MG1 TA2 PO; +PRINIVIL5 MG PO; +PROTONIX 40MG T40 MG PO
== END 2023-09-05 | disposition home or self-care (01) ==
LOC: MKS.ESL.PT
DX: Z89.511 Acquired absence of right leg below knee (principal)